=== PATIENT | male | born 2000 | race Caucasian/White ===

== ENCOUNTER 2021-11-06 13:25 | Emergency (ER) | payer MEDICAID ==
[~2021-11-06] VITALS: Ht 182.9 cm; Wt 91.0 kg
[2021-11-06] MEDS ORDERED: MAGNESIUM/ALUMINUM HYDROXIDE/SIMETHICONE 30ML UDC PO STA (13:58)
[2021-11-06] MEDS ORDERED: VISCOUS LIDOCAINE 2% 15 ML UDC PO STA (13:58)
[2021-11-06 15:25] LABS: CHLORIDE 108 mEq/L (98-107)
[2021-11-06 15:27] LABS: BASOPHILS % 0.3 % (0.0-2.0); EOSINOPHILS % 1.3 % (0.0-5.0); HEMATOCRIT. 41.5 % (42.0-52.0); HEMOGLOBIN. 14.3 g/dL (14.0-18.0); LYMPHOCYTES % 22.4 % (20.0-50.0); MEAN CORPUSCULAR HEMOGLOBIN 28.5 pg (28.0-32.0); MEAN CORPUSCULAR VOLUME 82.7 fL (80.0-94.0); MEAN PLATELET VOLUME 9.2 fl (7.4-10.4); PLATELET 218 x1000/uL (130-400); RED BLOOD CELL COUNT 5.02 mill/uL (4.7-6.1); RED CELL DISTRIBUTION WIDTH 13.5 % (11.6-14.6)
[2021-11-06] MEDS ORDERED: OMEP20TA15 MT (17:13)
[2021-11-06 17:28] VITALS: BP 140/80
== END 2021-11-06 17:31 | disposition home or self-care (01) ==
LOC: ER 13:25
DX: K29.70 Gastritis, unspecified, without bleeding (principal)
CPT/HCPCS: 36415; 80053; 85025; 99283

== ENCOUNTER 2023-07-17 12:15 | Emergency (ER) | payer MEDICAID, OTHER ==
[~2023-07-17] VITALS: Ht 182.9 cm; Wt 114.0 kg
[~2023-07-17 12:15] MED LIST: OMEP20TA15 MT
[2023-07-17 12:18] VITALS: RESP 18
[2023-07-17 12:20] VITALS: BP 149/85; PULSE 96; TEMP 98.9; O2SAT 99
[2023-07-17] MEDS ORDERED: PENI500T MT (12:48)
[2023-07-17] MEDS ORDERED: IBUP-2030 MT (12:48)
== END 2023-07-17 13:22 | disposition home or self-care (01) ==
LOC: ER 13:15
DX: K08.89 Other specified disorders of teeth and supporting structures (principal)
CPT/HCPCS: 99281; 99283

== ENCOUNTER 2023-08-28 13:15 | Emergency (ER) | payer OTHER ==
[~2023-08-28] VITALS: Ht 182.9 cm; Wt 121.0 kg
[~2023-08-28 13:15] MED LIST changes: +IBUP-2030 MT; +PENI500T MT
[2023-08-28 13:24] VITALS: BP 159/88; O2SAT 99
[2023-08-28 17:10] VITALS: PULSE 98; RESP 18; TEMP 97.9
== END 2023-08-28 17:11 | disposition home or self-care (01) ==
LOC: ER 14:16
DX: J06.9 Acute upper respiratory infection, unspecified (principal)
CPT/HCPCS: 99281

== ENCOUNTER 2024-02-27 19:57 | Emergency (ER) | payer OTHER ==
[~2024-02-27] VITALS: Ht 182.9 cm; Wt 127.0 kg
[2024-02-27 20:01] VITALS: O2SAT 97
[2024-02-27 20:14] LABS: CLARITY URINE CLEAR (CLEAR); COLOR URINE YELLOW (YELLOW); GLUCOSE URINE NEGATIVE (NEGATIVE); KETONES URINE TRACE (NEGATIVE); LEUKOCYTE ESTERASE URINE NEGATIVE (NEGATIVE); NITRITE URINE NEGATIVE (NEGATIVE); OCCULT BLOOD URINE NEGATIVE (NEGATIVE); PH URINE 5.5 (4.5-8.0); PROTEIN URINE NEGATIVE (NEGATIVE); SPECIFIC GRAVITY URINE 1.021 (1.005-1.030)
[2024-02-27 20:34] LABS: BASOPHILS % 0.6 % (0.0-2.0); EOSINOPHILS % 1.6 % (0.0-5.0); HEMATOCRIT. 39.5 % (42.0-52.0); MEAN CORPUSCULAR HEMOGLOBIN 30.1 pg (28.0-32.0); MEAN CORPUSCULAR HGB CONC 35.4 g/dL (31.0-37.0); MONOCYTES % 8.6 % (2.0-8.0); NEUTROPHILS % 64.2 % (40.0-76.0); PLATELET 215 x1000/uL (130-400); RED BLOOD CELL COUNT 4.64 mill/uL (4.7-6.1); WHITE BLOOD COUNT 7.3 x1000/uL (4.5-11.0)
[2024-02-27 20:38] LABS: CHLORIDE 106 mEq/L (98-107); POTASSIUM 3.6 mEq/L (3.5-5.1); SODIUM 141 mEq/L (136-145)
[2024-02-27 20:39] LABS: CARBON DIOXIDE 25 mEq/L (21-32)
[2024-02-27 20:40] LABS: CALCIUM 9.3 mg/dL (8.7-10.4)
[2024-02-27 20:44] LABS: CREATININE 0.8 mg/dL (0.6-1.3)
[2024-02-27 20:45] LABS: GLUCOSE 104 mg/dL (70-105); UREA NITROGEN BLOOD 16 mg/dL (9-23)
[2024-02-27 20:46] LABS: ALANINE AMINOTRANSFERASE 127 IU/L (10-49); ALBUMIN 4.9 g/dL (3.2-4.8); ASPARTATE AMINOTRANSFERASE 92 IU/L (<34)
[2024-02-27 20:47] LABS: BILIRUBIN TOTAL 0.2 mg/dL (0.1-1.0); PROTEIN TOTAL 7.5 g/dL (6.0-8.3)
[2024-02-27 20:54] LABS: BILIRUBIN DIRECT < 0.1 mg/dL (<=3.0)
[2024-02-28] MEDS: ONDANSETRON HCL 4MG/2ML INJ IV ONE (00:41)
[2024-02-28] MEDS: MAGNESIUM/ALUMINUM HYDROXIDE/SIMETHICONE 30ML UDC PO ONE (00:42)
[2024-02-28] MEDS: KETOROLAC 15MG/ML VIAL IV ONE (00:42)
[2024-02-28] MEDS: SODIUM CHLORIDE 0.9% 1,000 ML IV ONE (00:42)
[2024-02-28] MEDS ORDERED: NAPR-1164 MT (04:02)
[2024-02-28] MEDS ORDERED: ONDA4TAB50 MT (04:02)
[2024-02-28 04:19] VITALS: BP 135/79; PULSE 83; RESP 15; TEMP 98.2
== END 2024-02-28 04:36 | disposition home or self-care (01) ==
LOC: ER 19:57
DX: K80.80 Other cholelithiasis without obstruction (principal)
CPT/HCPCS: 99285; 80076; 80048; 81003; 85025; 36415; 96374; 76705; 96361; 96375; J1885; J2405; J7030

== ENCOUNTER 2024-05-29 14:37 | Emergency (ER) | payer SELFPAY ==
[~2024-05-29] VITALS: Ht 185.4 cm; Wt 120.2 kg
[~2024-05-29 14:37] MED LIST changes: +NAPR-1164 MT; +ONDA4TAB50 MT
[2024-05-29 14:41] VITALS: O2SAT 96
[2024-05-29 19:16] VITALS: BP 144/89; PULSE 90; RESP 20; TEMP 37.11408; O2SAT 98
== END 2024-05-29 19:16 | disposition home or self-care (01) ==
LOC: ER 14:37
DX: J06.9 Acute upper respiratory infection, unspecified (principal); Z20.822 Contact with and (suspected) exposure to COVID-19
CPT/HCPCS: 87426; 99283

== ENCOUNTER 2024-07-13 12:03 | Emergency (ER) | payer OTHER ==
[~2024-07-13] VITALS: Ht 185.4 cm; Wt 124.0 kg
[2024-07-13 12:13] VITALS: BP 153/94; PULSE 84; RESP 16; TEMP 98.2; O2SAT 97
[2024-07-13] MEDS ORDERED: NAPR-681 MT (16:41)
[2024-07-13] MEDS ORDERED: D-ME473S50 PO (16:41)
== END 2024-07-13 17:02 | disposition home or self-care (01) ==
LOC: ER 12:03
DX: J06.9 Acute upper respiratory infection, unspecified (principal); Z79.899 Other long term (current) drug therapy; Z20.822 Contact with and (suspected) exposure to COVID-19
CPT/HCPCS: 71045; 87426; 87804; 99284

== ENCOUNTER 2025-02-20 22:14 | Emergency (ER) | payer OTHER ==
[~2025-02-20] VITALS: Ht 177.8 cm; Wt 100.0 kg
[~2025-02-20 22:14] MED LIST changes: +D-ME473S50 PO; +NAPR-681 MT
[2025-02-20 22:16] VITALS: O2SAT 95
[2025-02-20] MEDS ORDERED: AMOX1TAB16 MT (22:54)
[2025-02-20 23:06] VITALS: BP 150/88; PULSE 100; RESP 20; TEMP 36.7; O2SAT 97
== END 2025-02-20 23:08 | disposition home or self-care (01) ==
LOC: ER 22:14
DX: S61.252A Open bite of right middle finger without damage to nail, initial encounter (principal); Z79.899 Other long term (current) drug therapy; W54.0XXA Bitten by dog, initial encounter; Y93.89 Activity, other specified; Y92.89 Other specified places as the place of occurrence of the external cause; Y99.8 Other external cause status
CPT/HCPCS: 99283

== ENCOUNTER 2025-04-03 07:26 | Emergency (ER) | payer OTHER ==
[~2025-04-03] VITALS: Ht 182.9 cm; Wt 120.0 kg
[~2025-04-03 07:26] MED LIST changes: +AMOX1TAB16 MT
[2025-04-03 07:42] VITALS: TEMP 36.7; O2SAT 100
[2025-04-03 08:41] LABS: PLATELET 230 x1000/uL (130-400); RED BLOOD CELL COUNT 4.80 mill/uL (4.7-6.1); RED CELL DISTRIBUTION WIDTH 13.7 % (11.6-14.6)
[2025-04-03 09:18] LABS: CREATININE 0.8 mg/dL (0.6-1.3)
[2025-04-03 09:19] LABS: UREA NITROGEN BLOOD 7 mg/dL (9-23)
[2025-04-03 09:20] LABS: ASPARTATE AMINOTRANSFERASE 52 IU/L (<34)
[2025-04-03 09:21] LABS: BILIRUBIN DIRECT 0.2 mg/dL (<=3.0); BILIRUBIN TOTAL 0.4 mg/dL (0.1-1.0); PROTEIN TOTAL 7.7 g/dL (6.0-8.3)
[2025-04-03] MEDS: MAGNESIUM/ALUMINUM HYDROXIDE/SIMETHICONE 30ML UDC PO ONE (09:37)
[2025-04-03] MEDS: ONDANSETRON 4MG ODT PO ONE (09:37)
[2025-04-03] MEDS: FAMOTIDINE 20MG TABLET PO ONE (09:37)
[2025-04-03 11:01] VITALS: BP 137/81; PULSE 89; RESP 18; O2SAT 100
== END 2025-04-03 11:03 | disposition home or self-care (01) ==
LOC: ER 07:26
DX: B34.9 Viral infection, unspecified (principal); Z79.899 Other long term (current) drug therapy
CPT/HCPCS: 80076; 80048; 83690; 85027; 36415; 99284; Q0162; Z7610

== ENCOUNTER 2025-05-21 09:11 | Emergency (ER) | payer MEDICAID, OTHER ==
[~2025-05-21] VITALS: Ht 182.9 cm; Wt 120.0 kg
[2025-05-21 09:29] VITALS: TEMP 36.9; O2SAT 99
[2025-05-21] MEDS: IBUPROFEN 800MG TABLET PO ONE (10:11)
[2025-05-21 10:16] VITALS: BP 152/95; PULSE 88; RESP 18; O2SAT 98
== END 2025-05-21 10:20 | disposition home or self-care (01) ==
LOC: ER 09:11
DX: S63.92XA Sprain of unspecified part of left wrist and hand, initial encounter (principal); Z79.899 Other long term (current) drug therapy; W01.0XXA Fall on same level from slipping, tripping and stumbling without subsequent striking against object, initial encounter; Y93.89 Activity, other specified; Y92.89 Other specified places as the place of occurrence of the external cause; Y99.8 Other external cause status
CPT/HCPCS: 73130; 99283